=== PATIENT | female | born 1995 | race Two or more races ===

== ENCOUNTER 2016-05-19 14:49 | Emergency (ER) | payer MEDICAID ==
[~2016-05-19] VITALS: Ht 167.6 cm; Wt 81.6 kg
[2016-05-19 15:46] LABS: Basophils # (auto) 0.1 uL; Basophils % (auto) 0.6 % (0.0-2.0); DEFINITIVE VIEW TRANSMISSION; Eosinophils # (auto) 0.1 uL; Hematocrit 35.1 % (36.0-46.0); Hemoglobin 11.4 g/dL (12.2-16.2); Lymphocytes # (auto) 3.6 uL; Lymphocytes % (auto) 30.3 % (10.0-50.0); Mean Corpuscular Hemoglobin 26.6 pg (28.0-32.0); Mean Corpuscular Hgb Conc. 32.5 g/dL (32.0-36.0); Mean Platelet Volume 9.3 fL (7.4-10.4); Monocytes # (auto) 0.7 uL; Monocytes % (auto) 5.7 % (0.0-12.0); Neutrophils # (auto) 7.4 uL; Neutrophils % (auto) 62.4 % (37.0-80.0); Platelet Count (auto) 334 10^3/uL (140-450); White Blood Cell 11.8 10^3/uL (4.4-10.8)
[2016-05-19 22:18] LABS: Urine Bilirubin Negative (Negative); Urine Color Yellow (Yellow); Urine Glucose Normal (Normal); Urine Ketone Negative (Negative); Urine Nitrite Negative (Negative); Urine RBC 10 /hpf (0 - 4); Urine Urobilinogen Normal (Negative)
[2016-05-19 22:31] LABS: Urine Blood 2+ /uL (Negative)
[2016-05-20 00:09] VITALS: BP 111/52
[2016-05-20] MEDS ORDERED: ONDANSETRON ODT 4 MG TAB PO ONE (00:15)
[2016-05-20] MEDS ORDERED: ESTROGENS, CONJUGATED 25 MG VIAL IM ONE (00:15)
== END 2016-05-20 00:45 | disposition home or self-care (01) ==
LOC: ER 14:51
DX: N92.1 Excessive and frequent menstruation with irregular cycle (principal)
CPT/HCPCS: 36415; 76830; 76856; 81001; 84702; 85025; 96372; 99285; J1410; Q0162

== ENCOUNTER 2016-05-20 10:59 | Emergency (ER) | payer MEDICAID ==
[~2016-05-20] VITALS: Ht 167.6 cm; Wt 86.6 kg
[2016-05-20] MEDS ORDERED: SODIUM CHLORIDE 0.9% 1,000 ML IV ONE (11:45)
[2016-05-20] MEDS ORDERED: ONDANSETRON HCL 4 MG/2 ML VIAL IV ONE (12:00)
[2016-05-20 12:31] LABS: Basophils # (auto) 0 uL; Basophils % (auto) 0.4 % (0.0-2.0); Eosinophils # (auto) 0 uL; Eosinophils % (auto) 0.2 % (0.0-7.0); Hematocrit 28.2 % (36.0-46.0); Hemoglobin 9.4 g/dL (12.2-16.2); Lymphocytes # (auto) 2.9 uL; Lymphocytes % (auto) 27.1 % (10.0-50.0); Mean Corpuscular Hemoglobin 27.1 pg (28.0-32.0); Mean Corpuscular Hgb Conc. 33.3 g/dL (32.0-36.0); Mean Corpuscular Volume 81.3 fL (80.0-100.0); Mean Platelet Volume 9.1 fL (7.4-10.4); Monocytes # (auto) 0.5 uL; Monocytes % (auto) 4.2 % (0.0-12.0); Neutrophils # (auto) 7.4 uL; Neutrophils % (auto) 68.1 % (37.0-80.0); Platelet Count (auto) 345 10^3/uL (140-450); Red Cell Distribution Width 16.1 % (11.6-16.0); White Blood Cell 10.8 10^3/uL (4.4-10.8)
[2016-05-20 12:50] LABS: Albumin 3.5 g/dL (3.4-5.0); Calcium 8.7 mg/dL (8.5-10.1); Potassium 4.1 mmol/L (3.5-5.1); Total Protein 7.6 g/dL (6.4-8.2)
[2016-05-20 14:00] VITALS: BP 122/69
[2016-05-20 15:40] LABS: INR 0.96 (0.9-1.15); Prothrombin Time 10.4 sec (9.37-12.3)
[2016-05-20 15:41] LABS: Partial Thromboplastin Time 24.5 sec (22.64-33.71)
== END 2016-05-20 14:38 | disposition home or self-care (01) ==
LOC: ER 10:59
DX: N92.1 Excessive and frequent menstruation with irregular cycle (principal)
CPT/HCPCS: 36415; 80053; 82962; 85025; 85246; 85610; 85730; 93005; 96360; 99285; J7030

== ENCOUNTER 2016-08-26 00:40 | Emergency (ER) | payer MEDICAID ==
[~2016-08-26] VITALS: Ht 167.6 cm; Wt 83.5 kg
[2016-08-26 00:45] VITALS: BP 136/85
[2016-08-26 01:12] LABS: Basophils # (auto) 0.1 uL; Basophils % (auto) 0.6 % (0.0-2.0); CONDITION Y; DEFINITIVE SEE PRINTOUT; Eosinophils # (auto) 0.2 uL; Eosinophils % (auto) 1.7 % (0.0-7.0); Hematocrit 34.3 % (36.0-46.0); Hemoglobin 10.3 g/dL (12.2-16.2); Lymphocytes # (auto) 4.1 uL; Lymphocytes % (auto) 35.5 % (10.0-50.0); Mean Corpuscular Hemoglobin 20.1 pg (28.0-32.0); Mean Corpuscular Volume 67.1 fL (80.0-100.0); Mean Platelet Volume 9.2 fL (7.4-10.4); Monocytes # (auto) 0.6 uL; Monocytes % (auto) 5.2 % (0.0-12.0); Neutrophils # (auto) 6.7 uL; Platelet Count (auto) 483 10^3/uL (140-450); White Blood Cell 11.7 10^3/uL (4.4-10.8)
[2016-08-26 01:14] LABS: Red Cell Distribution Width 20.3 % (11.6-16.0)
[2016-08-26 01:16] LABS: Urine Bilirubin Negative (Negative); Urine Blood Negative /uL (Negative); Urine Color Yellow (Yellow); Urine Glucose Normal (Normal); Urine Ketone Negative (Negative); Urine Nitrite Negative (Negative); Urine RBC 1 /hpf (0 - 4); Urine Squamous Epithelial Cell FEW /hpf (<5)
[2016-08-26 01:30] LABS: Albumin 3.8 g/dL (3.4-5.0); BUN/Creatinine Ratio 21.4; Calcium 8.6 mg/dL (8.5-10.1); Magnesium 2.4 mg/dL (1.6-2.6); Potassium 4.3 mmol/L (3.5-5.1)
[2016-08-26 01:33] LABS: Bilirubin, Total 0.3 mg/dL (0.2-1.0); Total Protein 8.7 g/dL (6.4-8.2)
[2016-08-26 01:47] LABS: Hypersegmented Neutrophils Present; Platelet Estimate Increased
[2016-08-26 01:48] LABS: Anisocytosis Moderate; Microcytosis Marked
[2016-08-26 01:49] LABS: Hypochromia Moderate
== END 2016-08-26 06:18 | disposition left against medical advice (07) ==
LOC: ER 00:40
DX: R07.9 Chest pain, unspecified (principal); Z53.21 Procedure and treatment not carried out due to patient leaving prior to being seen by health care provider
CPT/HCPCS: 36415; 71010; 80053; 81001; 83735; 84443; 84702; 85025